=== PATIENT | female | born 1955 | race Two or more races ===

== ENCOUNTER 2024-04-19 19:10 | Emergency (ER) | payer SELFPAY ==
[~2024-04-19] VITALS: Ht 162.6 cm; Wt 65.0 kg
[2024-04-19 19:14] VITALS: O2SAT 98
[2024-04-19 20:34] LABS: HEMATOCRIT. 34.1 % (36.0-48.0); HEMOGLOBIN. 11.1 g/dL (12.0-16.0); MEAN CORPUSCULAR HEMOGLOBIN 26.1 pg (28.0-32.0); MEAN CORPUSCULAR HGB CONC 32.5 g/dL (31.0-37.0); MEAN CORPUSCULAR VOLUME 80.2 fL (81.0-99.0); PLATELET 634 x1000/uL (130-400); RED BLOOD CELL COUNT 4.26 mill/uL (4.2-5.4); RED CELL DISTRIBUTION WIDTH 20.1 % (11.6-14.6); WHITE BLOOD COUNT 19.2 x1000/uL (4.5-11.0)
[2024-04-19 20:35] LABS: DIFFERENTIAL COMMENT 1
[2024-04-19 20:39] LABS: CHLORIDE 110 mEq/L (98-107); POTASSIUM 3.3 mEq/L (3.5-5.1); SODIUM 141 mEq/L (136-145)
[2024-04-19 20:40] LABS: CARBON DIOXIDE 23 mEq/L (21-32)
[2024-04-19 20:41] LABS: CALCIUM 8.5 mg/dL (8.7-10.4)
[2024-04-19 20:45] LABS: CREATININE 0.5 mg/dL (0.6-1.0); GLUCOSE 170 mg/dL (70-105)
[2024-04-19 20:46] LABS: TROPONIN I HIGH SENSITIVITY 15 ng/L (3.0-34); UREA NITROGEN BLOOD 5 mg/dL (9-23)
[2024-04-19 20:47] LABS: ALANINE AMINOTRANSFERASE 9 IU/L (10-49); ALBUMIN 3.2 g/dL (3.2-4.8); ASPARTATE AMINOTRANSFERASE 21 IU/L (<34)
[2024-04-19 20:48] LABS: BILIRUBIN DIRECT 0.2 mg/dL (<=3.0); BILIRUBIN TOTAL 0.3 mg/dL (0.1-1.0); PLATELET ESTIMATE SLIGHTLY INCREASED; PROTEIN TOTAL 6.6 g/dL (6.0-8.3)
[2024-04-19 20:59] LABS: INR 1.3; PROTHROMBIN TIME 14.3 sec (9.6-11.0)
[2024-04-20] MEDS ORDERED: CEFP200T14 MT (00:58)
[2024-04-20] MEDS: ACETAMINOPHEN 325MG TABLET PO ONE (01:27)
[2024-04-20 01:28] VITALS: BP 156/88; PULSE 108; RESP 18
[2024-04-20] MEDS: ONDANSETRON HCL 4MG/2ML INJ IV ONE (01:28)
[2024-04-20] MEDS: KETOROLAC 30MG/ML VIAL IV NR (01:28)
[2024-04-20] MEDS: KETOROLAC 30MG/ML VIAL IV ONE (01:28)
[2024-04-20 01:29] VITALS: TEMP 100
[2024-04-20] MEDS: ONDANSETRON HCL 4MG/2ML INJ IV NR (01:29)
[2024-04-20] MEDS: ACETAMINOPHEN 325MG TABLET PO NR (01:29)
[2024-04-20 01:31] LABS: CLARITY URINE CLOUDY (CLEAR); COLOR URINE DARK YELLOW (YELLOW); GLUCOSE URINE NEGATIVE (NEGATIVE); KETONES URINE NEGATIVE (NEGATIVE); LEUKOCYTE ESTERASE URINE TRACE (NEGATIVE); NITRITE URINE POSITIVE (NEGATIVE); OCCULT BLOOD URINE NEGATIVE (NEGATIVE); PROTEIN URINE 1+ (NEGATIVE); SPECIFIC GRAVITY URINE 1.036 (1.005-1.030)
[2024-04-20 01:54] LABS: RBC URINE 0-2 /hpf (0-2); WBC URINE 0-2 /hpf (0-2)
[2024-04-20 01:55] LABS: BACTERIA URINE 1+; CALCIUM OXALATE CRYSTALS URINE 3+ /lpf; MUCUS URINE 2+ /lpf (< = 2+); SQUAMOUS EPITHELIAL CELL URINE 3+ /lpf (RARE/1+)
== END 2024-04-20 01:38 | disposition home or self-care (01) ==
LOC: ER 19:10
DX: C18.9 Malignant neoplasm of colon, unspecified (principal); K68.3 Retroperitoneal hematoma; J90 Pleural effusion, not elsewhere classified; E11.9 Type 2 diabetes mellitus without complications; I12.0 Hypertensive chronic kidney disease with stage 5 chronic kidney disease or end stage renal disease; I50.9 Heart failure, unspecified
CPT/HCPCS: 99285; 74176; 71045; 80076; 80048; 87106; 83605; 85025; 85610; 87040; 84484; 36415; 84145; 93005; 81003; 87086; J1885; J2405